=== PATIENT | female | born 1985 | race Hispanic/Latino ===

== ENCOUNTER 2021-10-06 00:03 | Emergency (ER) | payer BC ==
[~2021-10-06] VITALS: Ht 149.9 cm; Wt 110.2 kg
[2021-10-06 00:38] LABS: APPEARANCE,URINE CLEAR (CLEAR); BILIRUBIN,URINE SMALL (NEGATIVE); COLOR,URINE YELLOW (YELLOW); GLUCOSE, URINE (UA) NEGATIVE (NEGATIVE); KETONES,URINE >=80 mg/dL (NEGATIVE); LEUKOCYTE ESTERASE ,URINE TRACE (NEGATIVE); NITRATE,URINE NEGATIVE (NEGATIVE); OCCULT BLOOD,URINE TRACE-INTACT (NEGATIVE); PH,URINE 6.5 (5.0-8.0); PROTEIN,URINE TRACE mg/dL (NEGATIVE)
[2021-10-06 00:38] LABS: BASOPHILS % (AUTO) 0.3 % (0.0-5.0); EOSINOPHILS % (AUTO) 8.3 % (0.0-8.0); HEMATOCRIT 36.2 % (36-48); LYMPHOCYTES % (AUTO) 6.2 % (21.0-51.0); MEAN CORPUSCULAR HEMOGLOBIN 25.1 pg (27.0-33.0); MEAN CORPUSCULAR HGB CONC 32.9 g/dL (32.0-36.0); MEAN CORPUSCULAR VOLUME 76.2 fL (79-99); MONOCYTES % (AUTO) 6.8 % (3.0-13.0); NEUTROPHILS % (AUTO) 77.9 % (40.0-77.0); PLATELET COUNT (AUTO) 366 K/uL (130-400); RED BLOOD CELL COUNT(AUTO) 4.75 MIL/uL (4.00-5.50); WHITE BLOOD COUNT (AUTO) 25.3 K/uL (4.8-10.8)
[2021-10-06 00:46] LABS: RBC,URINE 0-1 /HPF (0-1)
[2021-10-06 00:47] LABS: BACTERIA,URINE Rare /HPF (None Seen); MUCUS,URINE Few LPF (None Seen); SQUAMOUS EPITHELIAL CELL,UR Few /HPF (0-2)
[2021-10-06] MEDS ORDERED: MORPHINE 2 MG SYG IVP ONE (01:00)
[2021-10-06] MEDS ORDERED: 0.9%NACL 1000ML 1,000 ML IV ONE ×2 (01:00→01:07)
[2021-10-06] MEDS ORDERED: KETOROLAC 15MG/ML VIAL (15MG/ML) IV ONE (01:00)
[2021-10-06] MEDS ORDERED: ONDANSETRON 4MG INJ IVP ONE (01:00)
[2021-10-06 01:02] LABS: ALBUMIN 3.7 g/dL (3.5-5.0); BILIRUBIN,TOTAL 0.6 mg/dL (0.2-1.0); CREATININE 0.8 mg/dL (0.5-1.5); TOTAL PROTEIN, SERUM 8.6 g/dL (6.0-8.3)
[2021-10-06 01:06] LABS: POTASSIUM 2.9 mmol/L (3.5-5.1)
[2021-10-06] MEDS ORDERED: KETOROLAC 15MG/ML VIAL (15MG/ML) ONE (01:06)
[2021-10-06] MEDS ORDERED: ONDANSETRON 4MG INJ ONE (01:06)
[2021-10-06] MEDS ORDERED: MORPHINE 2 MG SYG ONE (01:07)
[2021-10-06] MEDS ORDERED: KCL 20 MEQ ERTAB PO ONE (01:30)
[2021-10-06] MEDS ORDERED: IOHEXOL 350 MG/ML 100ML INFUS..BTL IV ONE (01:48)
[2021-10-06] MEDS ORDERED: ZOSYN 3.375GM +NS 50ML IV SCH (03:00)
[2021-10-06] MEDS ORDERED: DOXYCYCLINE HYCLATE 100 MG TABLET PO SCH (04:00)
[2021-10-06] MEDS ORDERED: ACET-2079 PO (05:11)
[2021-10-06] MEDS ORDERED: ONDA-104 PO (05:11)
[2021-10-06] MEDS ORDERED: DOXY-336 PO (05:11)
[2021-10-06 05:18] VITALS: BP 134/79
[2021-10-06] MEDS ORDERED: CEFTRIAXONE 1G VIAL IVP ONE (05:30)
== END 2021-10-06 05:36 | disposition home or self-care (01) ==
LOC: EDH 00:03
DX: N73.0 Acute parametritis and pelvic cellulitis (principal); Z79.1 Long term (current) use of non-steroidal anti-inflammatories (NSAID); Z90.49 Acquired absence of other specified parts of digestive tract
CPT/HCPCS: 36415; 74177; 76856; 80053; 81001; 83605; 83690; 84145; 84702; 85025; 87040 ×2; 87088; 87210; 87486; 87797; 96365; 96375; 99285; J0696; J1885; J2405; J2543; J7030; Q9967

== ENCOUNTER 2022-04-08 18:54 | Emergency (ER) | payer BC ==
[~2022-04-08] VITALS: Ht 154.9 cm; Wt 110.3 kg
[~2022-04-08 18:54] MED LIST: ACET-2079 PO; DOXY-336 PO; ONDA-104 PO
[2022-04-08] MEDS ORDERED: KETOROLAC 30MG VIAL (30MG/ML) IVP ONE (19:30)
[2022-04-08] MEDS ORDERED: CYCLOBENZAPRINE HCL 10 MG TABLET PO ONE (19:30)
[2022-04-08] MEDS ORDERED: PROMETHAZINE HCL 25 MG/ML 1ML AMPULE IM ONE (19:30)
[2022-04-08] MEDS ORDERED: 0.9% NACL 500ML IV.SOLN 500 ML IV SCH (19:30)
[2022-04-08 19:52] LABS: BASOPHILS % (AUTO) 0.4 % (0.0-5.0); EOSINOPHILS % (AUTO) 2.7 % (0.0-8.0); HEMATOCRIT 40.1 % (36-48); LYMPHOCYTES % (AUTO) 22.9 % (21.0-51.0); MEAN CORPUSCULAR HEMOGLOBIN 25.1 pg (27.0-33.0); MEAN CORPUSCULAR HGB CONC 31.9 g/dL (32.0-36.0); MEAN CORPUSCULAR VOLUME 78.6 fL (79-99); NEUTROPHILS % (AUTO) 67.3 % (40.0-77.0); PLATELET COUNT (AUTO) 409 K/uL (130-400); RED CELL DISTRIBUTION WIDTH 14.3 % (11.0-15.5); WHITE BLOOD COUNT (AUTO) 11.2 K/uL (4.8-10.8)
[2022-04-08 20:08] LABS: CREATININE 0.7 mg/dL (0.5-1.5); POTASSIUM 3.1 mmol/L (3.5-5.1)
[2022-04-08 20:13] LABS: ALBUMIN 3.7 g/dL (3.5-5.0); TOTAL PROTEIN, SERUM 8.5 g/dL (6.0-8.3)
[2022-04-08] MEDS ORDERED: POTASSIUM BICARB/CIT AC 25 MEQ TABLET.EFF ONE (20:20)
[2022-04-08] MEDS ORDERED: POTASSIUM BICARB/CIT AC 25 MEQ TABLET.EFF PO ONE (20:30)
[2022-04-08] MEDS ORDERED: NAPR-1180 PO (20:49)
[2022-04-08] MEDS ORDERED: CYCL10TA16 PO (20:49)
[2022-04-08 21:00] VITALS: BP 149/75
== END 2022-04-08 21:14 | disposition home or self-care (01) ==
LOC: EDH 18:54
DX: G44.209 Tension-type headache, unspecified, not intractable (principal); E66.01 Morbid (severe) obesity due to excess calories; Z68.42 Body mass index [BMI] 45.0-49.9, adult; Z79.899 Other long term (current) drug therapy; Z90.89 Acquired absence of other organs; Z98.890 Other specified postprocedural states
CPT/HCPCS: 99284; 96374; 80053; 85025; 36415; 96372; J7040; J2550; J1885